=== PATIENT | female | born 1945 | race Two or more races ===

== ENCOUNTER 2022-11-05 07:23 | Outpatient (CLI) | payer OTHER ==
[~2022-11-05 07:23] MED LIST: COZAAR25 MG; LEVSIN/SL0.125 MG SL; LIPITOR40 MG; PEPCID40 MG PO; PHENERGAN25 MG PO; VERAPAMIL ER240 MG
== END 2022-11-05 15:39 | disposition home or self-care (01) ==
LOC: TOM 07:23
DX: K63.5 Polyp of colon (principal)